=== PATIENT | female | born 1995 | race Two or more races ===

== ENCOUNTER 2023-07-24 10:28 | Emergency (ER) | payer OTHER ==
[~2023-07-24] VITALS: Ht 147.3 cm; Wt 98.2 kg
[2023-07-24 10:30] VITALS: TEMP 97.7
[2023-07-24] MEDS ORDERED: SODIUM CHLORIDE 0.9% 1,000 ML IV ONE (10:45)
[2023-07-24] MEDS ORDERED: HALOPERIDOL LACTATE 5 MG/ML VIAL IVP ONE (11:00)
[2023-07-24 11:07] LABS: BASOPHILS % (AUTO) 0.4 % (0.0-2.0); EOSINOPHILS % (AUTO) 0.2 % (1.0-6.0); HEMATOCRIT 41.5 % (36-46); HEMOGLOBIN 14.3 g/dL (12.0-16.0); LYMPHOCYTES # (AUTO) 3.5 K/uL (1.0-4.8); LYMPHOCYTES % (AUTO) 18.3 % (22.0-44.0); MEAN CORPUSCULAR HEMOGLOBIN 29.6 pg (26.0-34.0); MEAN CORPUSCULAR HGB CONC 34.4 G/dL (31.0-37.0); MEAN CORPUSCULAR VOLUME 86 fL (80-100); MONOCYTES # (AUTO) 1.4 K/uL (0.1-1.0); MONOCYTES % (AUTO) 7.1 % (2.0-9.0); NEUTROPHILS # (AUTO) 14.2 K/uL (1.8-7.7); PLATELET COUNT (AUTO) 343 K/uL (150-450); RED BLOOD CELL COUNT(AUTO) 4.83 MIL/uL (4.00-5.20); RED CELL DISTRIBUTION WIDTH 13.7 % (11.5-14.5); WHITE BLOOD COUNT (AUTO) 19.2 K/uL (4.5-11.0)
[2023-07-24] MEDS ORDERED: LORazepam 2 MG/ML VIAL IVP ONE (11:15)
[2023-07-24 11:28] LABS: ALANINE AMINOTRANSFERASE 38 U/L (12-78); ALBUMIN 4.9 g/dL (3.4-5.0); ALKALINE PHOSPHATASE 72 U/L (46-116); ANION GAP 19 mmol/L (8-16); ASPARTATE AMINOTRANSFERASE 56 U/L (15-37); CALCIUM, TOTAL 9.8 mg/dL (8.8-10.5); CARBON DIOXIDE 20 mmol/L (22-29); CHLORIDE 98 mmol/L (98-107); CREATININE 1.16 mg/dL (0.60-1.30); GLOMERULAR FILTR. RATE CALC 56 mL/min (>60); GLUCOSE,RANDOM 99 mg/dL (70-110); HCG,QUANTITATIVE < 1 mIU/mL (0-6); LIPASE 26 U/L (16-77); SODIUM SERUM 137 mmol/L (136-145); TOTAL PROTEIN, SERUM 9.1 g/dL (6.4-8.2); UREA NITROGEN, BLOOD 9 mg/dL (7-18)
[2023-07-24 11:29] LABS: POTASSIUM 2.9 mmol/L (3.5-5.1)
[2023-07-24] MEDS ORDERED: POTASSIUM CHL 20 MEQ/0.9% NS 1,000 ML IV ONE (11:45)
[2023-07-24 12:25] LABS: APPEARANCE,URINE HAZY (CLEAR); BILIRUBIN,URINE NEGATIVE (NEGATIVE); COLOR,URINE LIGHT YELLOW (YELLOW); GLUCOSE, URINE (UA) NEGATIVE (NEGATIVE); KETONES,URINE 80-100 mg/dL (NEGATIVE); LEUKOCYTE ESTERASE ,URINE NEGATIVE (NEGATIVE); NITRATE,URINE NEGATIVE (NEGATIVE); OCCULT BLOOD,URINE SMALL (NEGATIVE); PH,URINE 5.5 (5.0-8.0); PROTEIN,URINE 30-70 mg/dL (NEGATIVE); SPECIFIC GRAVITIY, URINE 1.009 (1.003-1.030); UROBILINOGEN,URINE <=1.0 mg/dL (<=1.0)
[2023-07-24 12:36] LABS: BACTERIA,URINE None Seen /HPF (None Seen); RBC,URINE 0-2 /HPF (0-2); SQUAMOUS EPITHELIAL CELL,UR Few /LPF (None Seen); WBC,URINE None Seen /HPF (0-5)
[2023-07-24 12:58] VITALS: BP 131/82; PULSE 80; RESP 16
== END 2023-07-24 13:29 | disposition home or self-care (01) ==
LOC: EMS 10:50
DX: E86.0 Dehydration (principal); E87.6 Hypokalemia; R11.2 Nausea with vomiting, unspecified; I10 Essential (primary) hypertension; F12.90 Cannabis use, unspecified, uncomplicated; Z90.49 Acquired absence of other specified parts of digestive tract
CPT/HCPCS: 99285; 74176; 96365; 96375; 96361; 80053; 81001; 83690; 84702; 85025; 36415; 93005; J1630; J2060; J7030; J3480

== ENCOUNTER 2023-08-10 11:26 | Emergency (ER) | payer OTHER ==
[~2023-08-10] VITALS: Ht 149.9 cm; Wt 88.6 kg
[2023-08-10 11:53] VITALS: TEMP 97.7
[2023-08-10] MEDS ORDERED: FAMO20 PO ×2 (11:59→19:47)
[2023-08-10] MEDS ORDERED: METO10TA3 PO (11:59)
[2023-08-10] MEDS ORDERED: ONDA4TAB10 PO (11:59)
[2023-08-10 12:29] LABS: BASOPHILS % (AUTO) 0.6 % (0.0-2.0); EOSINOPHILS % (AUTO) 1.1 % (1.0-6.0); HEMOGLOBIN 13.8 g/dL (12.0-16.0); LYMPHOCYTES # (AUTO) 3.3 K/uL (1.0-4.8); LYMPHOCYTES % (AUTO) 29.9 % (22.0-44.0); MEAN CORPUSCULAR HEMOGLOBIN 29.3 pg (26.0-34.0); MEAN CORPUSCULAR HGB CONC 33.7 G/dL (31.0-37.0); MEAN CORPUSCULAR VOLUME 87 fL (80-100); MONOCYTES # (AUTO) 0.9 K/uL (0.1-1.0); MONOCYTES % (AUTO) 8.2 % (2.0-9.0); NEUTROPHILS # (AUTO) 6.6 K/uL (1.8-7.7); NEUTROPHILS % (AUTO) 60.2 % (40.0-70.0); PLATELET COUNT (AUTO) 310 K/uL (150-450); RED BLOOD CELL COUNT(AUTO) 4.71 MIL/uL (4.00-5.20); RED CELL DISTRIBUTION WIDTH 14.2 % (11.5-14.5)
[2023-08-10 12:44] LABS: ANION GAP 12 mmol/L (8-16); CALCIUM, TOTAL 9.5 mg/dL (8.8-10.5); CARBON DIOXIDE 26 mmol/L (22-29); CHLORIDE 102 mmol/L (98-107); CREATININE 0.76 mg/dL (0.60-1.30); GLOMERULAR FILTR. RATE CALC > 60 mL/min (>60); GLUCOSE,RANDOM 102 mg/dL (70-110); POTASSIUM 3.4 mmol/L (3.5-5.1); SODIUM SERUM 140 mmol/L (136-145); UREA NITROGEN, BLOOD 5 mg/dL (7-18)
[2023-08-10 12:56] LABS: ALANINE AMINOTRANSFERASE 51 U/L (12-78); ALBUMIN 4.7 g/dL (3.4-5.0); ALKALINE PHOSPHATASE 73 U/L (46-116); ASPARTATE AMINOTRANSFERASE 67 U/L (15-37); BILIRUBIN,TOTAL 0.9 mg/dL (0.1-1.0); HCG,QUANTITATIVE 2 mIU/mL (0-6); LIPASE 13 U/L (16-77)
[2023-08-10] MEDS ORDERED: SODIUM CHLORIDE 0.9% 1,000 ML IV ONE (15:30)
[2023-08-10] MEDS ORDERED: METOCLOPRAMIDE HCL 5 MG/ML 2 ML VIAL IVP ONE (15:30)
[2023-08-10] MEDS ORDERED: FAMOTIDINE 20 MG/2 ML VIAL IVP ONE (15:45)
[2023-08-10 16:03] LABS: APPEARANCE,URINE CLEAR (CLEAR); BILIRUBIN,URINE NEGATIVE (NEGATIVE); COLOR,URINE LIGHT YELLOW (YELLOW); GLUCOSE, URINE (UA) NEGATIVE (NEGATIVE); KETONES,URINE 40-60 mg/dL (NEGATIVE); LEUKOCYTE ESTERASE ,URINE NEGATIVE (NEGATIVE); NITRATE,URINE NEGATIVE (NEGATIVE); OCCULT BLOOD,URINE NEGATIVE (NEGATIVE); PROTEIN,URINE NEGATIVE (NEGATIVE); SPECIFIC GRAVITIY, URINE 1.007 (1.003-1.030); UROBILINOGEN,URINE <=1.0 mg/dL (<=1.0)
[2023-08-10] MEDS ORDERED: PB/HYOSCY/ATR/SCOP/LIDO/MAALOX 55 ML BOTTLE PO ONE (20:00)
[2023-08-10 20:16] VITALS: BP 129/77; PULSE 66; RESP 14
== END 2023-08-10 20:32 | disposition home or self-care (01) ==
LOC: EMS 11:26
DX: K29.70 Gastritis, unspecified, without bleeding (principal); B96.89 Other specified bacterial agents as the cause of diseases classified elsewhere; R11.2 Nausea with vomiting, unspecified; F41.9 Anxiety disorder, unspecified; I10 Essential (primary) hypertension; Z90.49 Acquired absence of other specified parts of digestive tract
CPT/HCPCS: 99285; 96374; 96361; 96375; 80053; 81003; 83690; 84702; 85025; 36415; 74022; J3490; J2765; J7030

== ENCOUNTER 2023-08-12 00:19 | Emergency (ER) | payer OTHER ==
[~2023-08-12] VITALS: Ht 147.3 cm; Wt 88.6 kg
[~2023-08-12 00:19] MED LIST: FAMO20 PO; METO10TA3 PO; ONDA4TAB10 PO
[2023-08-12 00:28] VITALS: TEMP 98.5
[2023-08-12] MEDS ORDERED: PB/HYOSCY/ATR/SCOP/LIDO/MAALOX 55 ML BOTTLE PO ONE (00:45)
[2023-08-12] MEDS ORDERED: ONDANSETRON HCL 4 MG/2 ML VIAL IVP ONE (00:45)
[2023-08-12] MEDS ORDERED: SODIUM CHLORIDE 0.9% 1,000 ML IV ONE (00:45)
[2023-08-12] MEDS ORDERED: ABILIFY PO (00:55)
[2023-08-12] MEDS ORDERED: HYDR-4527 PO (00:55)
[2023-08-12 01:14] LABS: BASOPHILS % (AUTO) 0.4 % (0.0-2.0); EOSINOPHILS % (AUTO) 1.2 % (1.0-6.0); HEMATOCRIT 37.5 % (36-46); HEMOGLOBIN 12.8 g/dL (12.0-16.0); LYMPHOCYTES # (AUTO) 3.4 K/uL (1.0-4.8); MEAN CORPUSCULAR HEMOGLOBIN 29.4 pg (26.0-34.0); MEAN CORPUSCULAR HGB CONC 34.2 G/dL (31.0-37.0); MEAN CORPUSCULAR VOLUME 86 fL (80-100); MONOCYTES % (AUTO) 8.4 % (2.0-9.0); NEUTROPHILS # (AUTO) 7.4 K/uL (1.8-7.7); PLATELET COUNT (AUTO) 295 K/uL (150-450); RED BLOOD CELL COUNT(AUTO) 4.37 MIL/uL (4.00-5.20); RED CELL DISTRIBUTION WIDTH 14.4 % (11.5-14.5)
[2023-08-12 01:21] LABS: ANION GAP 15 mmol/L (8-16); CALCIUM, TOTAL 9.1 mg/dL (8.8-10.5); CARBON DIOXIDE 22 mmol/L (22-29); CHLORIDE 108 mmol/L (98-107); CREATININE 0.86 mg/dL (0.60-1.30); GLOMERULAR FILTR. RATE CALC > 60 mL/min (>60); GLUCOSE,RANDOM 114 mg/dL (70-110); POTASSIUM 3.3 mmol/L (3.5-5.1); SODIUM SERUM 145 mmol/L (136-145); UREA NITROGEN, BLOOD 5 mg/dL (7-18)
[2023-08-12 01:27] LABS: ALANINE AMINOTRANSFERASE 58 U/L (12-78); ALBUMIN 4.3 g/dL (3.4-5.0); ALKALINE PHOSPHATASE 64 U/L (46-116); ASPARTATE AMINOTRANSFERASE 89 U/L (15-37); BILIRUBIN,TOTAL 0.7 mg/dL (0.1-1.0); LIPASE 17 U/L (16-77); TOTAL PROTEIN, SERUM 7.4 g/dL (6.4-8.2)
[2023-08-12] MEDS ORDERED: METOCLOPRAMIDE HCL 5 MG/ML 2 ML VIAL IVP ONE (02:00)
[2023-08-12 02:21] LABS: APPEARANCE,URINE HAZY (CLEAR); BILIRUBIN,URINE NEGATIVE (NEGATIVE); COLOR,URINE YELLOW (YELLOW); GLUCOSE, URINE (UA) NEGATIVE (NEGATIVE); LEUKOCYTE ESTERASE ,URINE TRACE (NEGATIVE); NITRATE,URINE NEGATIVE (NEGATIVE); OCCULT BLOOD,URINE NEGATIVE (NEGATIVE); PH,URINE 6.5 (5.0-8.0); PH,URINE DRUG SCREEN 6.5 (5.0-8.0); PROTEIN,URINE TRACE mg/dL (NEGATIVE); SPECIFIC GRAVITIY, URINE 1.015 (1.003-1.030); UROBILINOGEN,URINE <=1.0 mg/dL (<=1.0)
[2023-08-12 02:26] LABS: ALCOHOL, URINE DRUG SCREEN NEGATIVE (NEGATIVE); AMPHET/METH SCREEN,URINE NEGATIVE (NEGATIVE); BARBITURATE SCREEN, URINE NEGATIVE (NEGATIVE); BENZODIAZEPINES SCREEN,URINE NEGATIVE (NEGATIVE); CANNABINOID SCREEN,URINE POSITIVE (NEGATIVE); COCAINE SCREEN,URINE NEGATIVE (NEGATIVE); METHADONE SCREEN, URINE NEGATIVE (NEGATIVE); OPIATE SCREEN,URINE NEGATIVE (NEGATIVE); PHENCYCLIDINE SCREEN,URINE NEGATIVE (NEGATIVE)
[2023-08-12 02:30] LABS: BACTERIA,URINE Many /HPF (None Seen); RBC,URINE None Seen /HPF (0-2); SQUAMOUS EPITHELIAL CELL,UR Many /LPF (None Seen)
[2023-08-12] MEDS ORDERED: HYDROmorphone HCL 2 MG/ML SYRINGE IVP ONE (02:30)
[2023-08-12] MEDS ORDERED: IOHEXOL 9 MG/ML 500 ML BOTTLE PO ONE (02:30)
[2023-08-12 02:36] VITALS: BP 132/82; PULSE 90; RESP 16
[2023-08-12] MEDS ORDERED: IOHEXOL 350 MG/ML 100 ML VIAL ONE (03:43)
[2023-08-12] MEDS ORDERED: SODIUM CHLORIDE 0.9% 100 ML ONE (03:43)
[2023-08-12] MEDS ORDERED: PROM25SU10 PR (05:46)
[2023-08-12] MEDS ORDERED: MAG30ORA11 PO (05:46)
[2023-08-12] MEDS ORDERED: METO-296 PO (05:46)
[2023-08-12] MEDS ORDERED: OMEP20 PO (05:46)
[2023-08-12] MEDS ORDERED: [UNRECOGNIZED DRUG - CODE] PO (05:46)
== END 2023-08-12 06:01 | disposition home or self-care (01) ==
LOC: EMS 00:19
DX: K58.9 Irritable bowel syndrome, unspecified (principal); R11.2 Nausea with vomiting, unspecified; F41.9 Anxiety disorder, unspecified; F32.A Depression, unspecified; I10 Essential (primary) hypertension; F12.90 Cannabis use, unspecified, uncomplicated; Z90.49 Acquired absence of other specified parts of digestive tract
CPT/HCPCS: 99285; 74177; 96374; 96375; 96361; 80053; 81001; 83690; 84703; 85025; 36415; 87086; 87186; 80307; J1170; J2765; J2405; Q9967; J7030; J7050

== ENCOUNTER 2023-08-25 11:38 | Emergency (ER) | payer OTHER ==
[~2023-08-25] VITALS: Ht 147.3 cm; Wt 84.1 kg
[~2023-08-25 11:38] MED LIST changes: +ABILIFY PO; +HYDR-4527 PO; +MAG30ORA11 PO; +METO-296 PO; +OMEP20 PO; +PROM25SU10 PR; +[UNRECOGNIZED DRUG - CODE] PO
[2023-08-25 12:08] VITALS: TEMP 98
[2023-08-25] MEDS ORDERED: SODIUM CHLORIDE 0.9% 1,000 ML IV ONE (15:15)
[2023-08-25] MEDS ORDERED: KETOROLAC TROMETHAMINE 30 MG/ML VIAL IVP ONE (15:15)
[2023-08-25] MEDS ORDERED: METOCLOPRAMIDE HCL 5 MG/ML 2 ML VIAL IVP ONE (15:15)
[2023-08-25] MEDS ORDERED: FAMOTIDINE 20 MG/2 ML VIAL IVP ONE (15:30)
[2023-08-25] MEDS ORDERED: PANT40TA54 PO (15:40)
[2023-08-25] MEDS ORDERED: ARIP5TAB37 PO (15:40)
[2023-08-25] MEDS ORDERED: ALBU18HF12 IH (15:40)
[2023-08-25 15:50] LABS: BASOPHILS % (AUTO) 0.5 % (0.0-2.0); EOSINOPHILS % (AUTO) 2.7 % (1.0-6.0); HEMATOCRIT 39.6 % (36-46); LYMPHOCYTES # (AUTO) 2.6 K/uL (1.0-4.8); LYMPHOCYTES % (AUTO) 35.2 % (22.0-44.0); MEAN CORPUSCULAR HEMOGLOBIN 29.1 pg (26.0-34.0); MEAN CORPUSCULAR HGB CONC 32.8 G/dL (31.0-37.0); MEAN CORPUSCULAR VOLUME 89 fL (80-100); MONOCYTES # (AUTO) 0.6 K/uL (0.1-1.0); MONOCYTES % (AUTO) 7.6 % (2.0-9.0); NEUTROPHILS # (AUTO) 3.9 K/uL (1.8-7.7); PLATELET COUNT (AUTO) 219 K/uL (150-450); RED BLOOD CELL COUNT(AUTO) 4.47 MIL/uL (4.00-5.20); RED CELL DISTRIBUTION WIDTH 15.3 % (11.5-14.5); WHITE BLOOD COUNT (AUTO) 7.3 K/uL (4.5-11.0)
[2023-08-25 15:52] LABS: ANION GAP 8 mmol/L (8-16); CALCIUM, TOTAL 9.2 mg/dL (8.8-10.5); CARBON DIOXIDE 28 mmol/L (22-29); CHLORIDE 103 mmol/L (98-107); CREATININE 0.63 mg/dL (0.60-1.30); GLOMERULAR FILTR. RATE CALC > 60 mL/min (>60); GLUCOSE,RANDOM 91 mg/dL (70-110); POTASSIUM 3.2 mmol/L (3.5-5.1); SODIUM SERUM 139 mmol/L (136-145); UREA NITROGEN, BLOOD 5 mg/dL (7-18)
[2023-08-25 16:02] LABS: ALANINE AMINOTRANSFERASE 38 U/L (12-78); ALBUMIN 3.9 g/dL (3.4-5.0); ALKALINE PHOSPHATASE 60 U/L (46-116); ASPARTATE AMINOTRANSFERASE 37 U/L (15-37); BILIRUBIN,TOTAL 0.6 mg/dL (0.1-1.0); LIPASE 15 U/L (16-77); TOTAL PROTEIN, SERUM 6.9 g/dL (6.4-8.2)
[2023-08-25 18:40] LABS: APPEARANCE,URINE HAZY (CLEAR); BILIRUBIN,URINE NEGATIVE (NEGATIVE); COLOR,URINE YELLOW (YELLOW); GLUCOSE, URINE (UA) NEGATIVE (NEGATIVE); KETONES,URINE 40-60 mg/dL (NEGATIVE); LEUKOCYTE ESTERASE ,URINE NEGATIVE (NEGATIVE); NITRATE,URINE NEGATIVE (NEGATIVE); OCCULT BLOOD,URINE LARGE (NEGATIVE); PROTEIN,URINE 30-70 mg/dL (NEGATIVE); SPECIFIC GRAVITIY, URINE 1.025 (1.003-1.030); UROBILINOGEN,URINE <=1.0 mg/dL (<=1.0)
[2023-08-25 18:54] LABS: BACTERIA,URINE None Seen /HPF (None Seen); RBC,URINE 26-50 /HPF (0-2); WBC,URINE 0-2 /HPF (0-5)
[2023-08-25 18:55] LABS: CALCIUM OXALATE CRYSTALS,UR Moderate /LPF (None Seen); SQUAMOUS EPITHELIAL CELL,UR Moderate /LPF (None Seen)
[2023-08-25 19:30] VITALS: BP 115/70; PULSE 62; RESP 17
== END 2023-08-25 19:32 | disposition home or self-care (01) ==
LOC: EMS 11:38
DX: K29.70 Gastritis, unspecified, without bleeding (principal); B96.89 Other specified bacterial agents as the cause of diseases classified elsewhere; E86.0 Dehydration; R11.2 Nausea with vomiting, unspecified; F41.9 Anxiety disorder, unspecified; F32.A Depression, unspecified; I10 Essential (primary) hypertension; F12.90 Cannabis use, unspecified, uncomplicated; Z90.49 Acquired absence of other specified parts of digestive tract
CPT/HCPCS: 99284; 96374; 96375; 96361; 80053; 81001; 83690; 84703; 85025; 36415; J3490; J1885; J2765; J7030

== ENCOUNTER 2024-03-11 11:02 | Emergency (ER) | payer MEDICAID, OTHER ==
[~2024-03-11] VITALS: Ht 147.3 cm; Wt 80.0 kg
[~2024-03-11 11:02] MED LIST changes: -ABILIFY PO; +ACET-3385 PO; +ALBU18HF12 IH; +ARIP5TAB37 PO; -FAMO20 PO; -MAG30ORA11 PO; -METO-296 PO; -METO10TA3 PO; +ONDA-104 PO; -ONDA4TAB10 PO; +PANT40TA54 PO; -PROM25SU10 PR; -[UNRECOGNIZED DRUG - CODE] PO
[2024-03-11 11:04] VITALS: TEMP 98.3
[2024-03-11 11:48] LABS: BASOPHILS % (AUTO) 0.5 % (0.0-2.0); EOSINOPHILS % (AUTO) 1.3 % (1.0-6.0); HEMATOCRIT 39.3 % (36-46); HEMOGLOBIN 13.2 g/dL (12.0-16.0); LYMPHOCYTES # (AUTO) 2.5 K/uL (1.0-4.8); LYMPHOCYTES % (AUTO) 32.9 % (22.0-44.0); MEAN CORPUSCULAR HGB CONC 33.6 G/dL (31.0-37.0); MEAN CORPUSCULAR VOLUME 89 fL (80-100); MONOCYTES # (AUTO) 0.7 K/uL (0.1-1.0); MONOCYTES % (AUTO) 9.6 % (2.0-9.0); NEUTROPHILS # (AUTO) 4.2 K/uL (1.8-7.7); NEUTROPHILS % (AUTO) 55.7 % (40.0-70.0); PLATELET COUNT (AUTO) 220 K/uL (150-450); RED BLOOD CELL COUNT(AUTO) 4.41 MIL/uL (4.00-5.20); RED CELL DISTRIBUTION WIDTH 13.6 % (11.5-14.5); WHITE BLOOD COUNT (AUTO) 7.6 K/uL (4.5-11.0)
[2024-03-11] MEDS: MAG HYDROX/ALUMINUM HYD/SIMETH ES 30 ML SUSPENSION UDCUP PO ONE (11:50)
[2024-03-11] MEDS: SODIUM CHLORIDE 0.9% 500 ML IV ONE (11:50)
[2024-03-11] MEDS: PANTOPRAZOLE SODIUM 40 MG/VIAL IVP ONE (11:50)
[2024-03-11] MEDS: ONDANSETRON HCL 4 MG/2 ML VIAL IVP ONE (11:51)
[2024-03-11 12:10] LABS: ANION GAP 11 mmol/L (8-16); CALCIUM, TOTAL 8.8 mg/dL (8.8-10.5); CARBON DIOXIDE 26 mmol/L (22-29); CHLORIDE 100 mmol/L (98-107); CREATININE 0.82 mg/dL (0.60-1.30); GLOMERULAR FILTR. RATE CALC > 60 mL/min (>60); GLUCOSE,RANDOM 102 mg/dL (70-110); HCG,QUANTITATIVE < 1 mIU/mL (0-6); LIPASE 14 U/L (16-77); SODIUM SERUM 137 mmol/L (136-145); UREA NITROGEN, BLOOD 8 mg/dL (7-18)
[2024-03-11 12:14] LABS: POTASSIUM 2.9 mmol/L (3.5-5.1)
[2024-03-11] MEDS: POTASSIUM CHLORIDE 10% 40 MEQ/30 ML LIQUID UDCUP PO ONE ×2 (12:35→15:04)
[2024-03-11 12:52] LABS: APPEARANCE,URINE HAZY (CLEAR); BILIRUBIN,URINE NEGATIVE (NEGATIVE); COLOR,URINE YELLOW (YELLOW); GLUCOSE, URINE (UA) NEGATIVE (NEGATIVE); KETONES,URINE 40-60 mg/dL (NEGATIVE); LEUKOCYTE ESTERASE ,URINE NEGATIVE (NEGATIVE); NITRATE,URINE NEGATIVE (NEGATIVE); OCCULT BLOOD,URINE TRACE (NEGATIVE); PROTEIN,URINE 30-70 mg/dL (NEGATIVE); UROBILINOGEN,URINE <=1.0 mg/dL (<=1.0)
[2024-03-11 13:21] LABS: BACTERIA,URINE None Seen /HPF (None Seen); RBC,URINE 0-2 /HPF (0-2); SQUAMOUS EPITHELIAL CELL,UR Many /LPF (None Seen); WBC,URINE None Seen /HPF (0-5)
[2024-03-11] MEDS: KETOROLAC TROMETHAMINE 30 MG/ML VIAL IVP ONE (14:13)
[2024-03-11] MEDS: LORazepam 2 MG/ML VIAL IVP ONE (14:13)
[2024-03-11 14:19] VITALS: BP 124/78; PULSE 83; RESP 16
[2024-03-11] MEDS ORDERED: ONDA-104 PO (14:47)
[2024-03-11] MEDS ORDERED: FAMO20 PO (14:47)
== END 2024-03-11 15:04 | disposition home or self-care (01) ==
LOC: EMS 11:02
DX: K29.70 Gastritis, unspecified, without bleeding (principal); F41.9 Anxiety disorder, unspecified; F32.A Depression, unspecified; I10 Essential (primary) hypertension; F12.90 Cannabis use, unspecified, uncomplicated; Z90.49 Acquired absence of other specified parts of digestive tract
CPT/HCPCS: 80048; 81001; 83690; 84702; 85025; 36415; 99284; 96361; 96374; 96375; J1885; J2060; J2405; C9113; J7040

== ENCOUNTER 2024-11-11 16:15 | Emergency (ER) | payer OTHER ==
[~2024-11-11] VITALS: Ht 147.3 cm; Wt 68.2 kg
[~2024-11-11 16:15] MED LIST changes: -ACET-3385 PO; -ALBU18HF12 IH; -ARIP5TAB37 PO; +FAMO20 PO; -HYDR-4527 PO; -OMEP20 PO; -PANT40TA54 PO
[2024-11-11 17:18] LABS: BASOPHILS % (AUTO) 0.5 % (0.0-2.0); EOSINOPHILS % (AUTO) 1.8 % (1.0-6.0); HEMATOCRIT 43.1 % (36-46); HEMOGLOBIN 14.3 g/dL (12.0-16.0); LYMPHOCYTES # (AUTO) 4.2 K/uL (1.0-4.8); MEAN CORPUSCULAR HEMOGLOBIN 29.5 pg (26.0-34.0); MEAN CORPUSCULAR HGB CONC 33.1 G/dL (31.0-37.0); MEAN CORPUSCULAR VOLUME 89 fL (80-100); MONOCYTES # (AUTO) 1.1 K/uL (0.1-1.0); MONOCYTES % (AUTO) 8.1 % (2.0-9.0); NEUTROPHILS # (AUTO) 7.7 K/uL (1.8-7.7); NEUTROPHILS % (AUTO) 57.6 % (40.0-70.0); PLATELET COUNT (AUTO) 322 K/uL (150-450); RED BLOOD CELL COUNT(AUTO) 4.84 MIL/uL (4.00-5.20); RED CELL DISTRIBUTION WIDTH 13.5 % (11.5-14.5); WHITE BLOOD COUNT (AUTO) 13.3 K/uL (4.5-11.0)
[2024-11-11 17:19] LABS: PH,URINE DRUG SCREEN 6.5 (5.0-8.0)
[2024-11-11 17:22] LABS: ANION GAP 15 mmol/L (8-16); CALCIUM, TOTAL 9.5 mg/dL (8.8-10.5); CARBON DIOXIDE 24 mmol/L (22-29); CHLORIDE 101 mmol/L (98-107); CREATININE 0.76 mg/dL (0.60-1.30); GLOMERULAR FILTR. RATE CALC > 60 mL/min (>60); GLUCOSE,RANDOM 106 mg/dL (70-110); POTASSIUM 3.5 mmol/L (3.5-5.1); SODIUM SERUM 140 mmol/L (136-145); UREA NITROGEN, BLOOD 4 mg/dL (7-18)
[2024-11-11 17:23] LABS: ALCOHOL, URINE DRUG SCREEN NEGATIVE (NEGATIVE); AMPHET/METH SCREEN,URINE NEGATIVE (NEGATIVE); BARBITURATE SCREEN, URINE NEGATIVE (NEGATIVE); BENZODIAZEPINES SCREEN,URINE NEGATIVE (NEGATIVE); CANNABINOID SCREEN,URINE POSITIVE (NEGATIVE); COCAINE SCREEN,URINE NEGATIVE (NEGATIVE); METHADONE SCREEN, URINE NEGATIVE (NEGATIVE); OPIATE SCREEN,URINE NEGATIVE (NEGATIVE); PHENCYCLIDINE SCREEN,URINE NEGATIVE (NEGATIVE)
[2024-11-11 17:33] LABS: HCG,QUANTITATIVE < 1 mIU/mL (0-6); LIPASE 16 U/L (16-77)
[2024-11-11] MEDS: SODIUM CHLORIDE 0.9% 1,000 ML IV ONE (17:36)
[2024-11-11] MEDS: HALOPERIDOL LACTATE 5 MG/ML VIAL IVP ONE (17:45)
[2024-11-11 20:46] VITALS: BP 134/89; PULSE 68; RESP 20; TEMP 98.3; O2SAT 99
== END 2024-11-11 21:16 | disposition home or self-care (01) ==
LOC: EMS 16:15
DX: F12.90 Cannabis use, unspecified, uncomplicated (principal); R10.30 Lower abdominal pain, unspecified; R11.10 Vomiting, unspecified; I10 Essential (primary) hypertension; Z87.19 Personal history of other diseases of the digestive system; Z90.49 Acquired absence of other specified parts of digestive tract
CPT/HCPCS: 99285; 74176; 96374; 96361; 80048; 83690; 84702; 85025; 36415; 80307; J1630; J7030